=== PATIENT | male | born 1985 | race African-American/Black ===

== ENCOUNTER 2018-11-22 07:44 | Emergency (ER) | payer MEDICAID ==
[~2018-11-22] VITALS: Ht 170.2 cm; Wt 80.0 kg
[2018-11-22 08:01] VITALS: BP 171/128
== END 2018-11-22 12:24 | disposition left against medical advice (07) ==
LOC: ER 07:44
DX: S01.81XA Laceration without foreign body of other part of head, initial encounter (principal); X58.XXXA Exposure to other specified factors, initial encounter; Y93.89 Activity, other specified; Y92.89 Other specified places as the place of occurrence of the external cause; Y99.8 Other external cause status; Z53.21 Procedure and treatment not carried out due to patient leaving prior to being seen by health care provider